=== PATIENT | female | born 1975 | race American Indian/Alaskan Native ===

== ENCOUNTER 2018-05-20 15:00 | Outpatient (CLI) | payer BC ==
--- NOTE | 2018-05-21 12:49 | Mammography Report ---
BILATERAL DIGITAL SCREENING MAMMOGRAM WITH CAD:05/20/18 00:00:00 CLINICAL: Baseline screening. FINDINGS: There are bilateral scattered fibroglandular densities.No mass, architectural distortion or suspicious calcifications. IMPRESSION: No mammographic evidence of malignancy. BI-RADS CATEGORY: 1 -- Negative RECOMMENDATION: Routine mammographic screening in one year. ACR BI-RADS MAMMOGRAPHIC CODES: 0 = Needs additional imaging evaluation; 1 = Negative; 2 = Benign; 3 = Probably benign; 4 = Suspicious; 5 = Malignant; 6 = Known biopsy-proven malignancy COMMENT: 1. Dense breast tissue, i.e., adenosis, fibrocystic changes, etc., may obscure an underlying neoplasm. 2. Approximately 10% of cancers are not detected with mammography. 3. A negative mammography report should not delay biopsy if a clinically suspicious mass is present.
== END 2018-05-20 15:01 | disposition home or self-care (01) ==
LOC: SPVWC 15:00
PROVIDERS: ATTEND Obstetrics & Gynecology
DX: Z12.31 Encounter for screening mammogram for malignant neoplasm of breast (principal)
CPT/HCPCS: 77067

== ENCOUNTER 2019-06-01 14:39 | Outpatient (CLI) | payer BC ==
--- NOTE | 2019-06-01 16:05 | Mammography Report ---
BILATERAL DIGITAL SCREENING MAMMOGRAM WITH CAD INDICATION: Routine screening mammography. TECHNIQUE: Digital bilateral 2D mammography was obtained in the craniocaudal and mediolateral obliq ue projections. This examination was interpreted with the benefit of Computer-Aided Detection analysi s. COMPARISON: 05/20/2018 FINDINGS: Breast Density: The breasts are almost entirely fatty. No mass, architectural distortion or suspicious calcifications. IMPRESSION:No mammographic evidence of malignancy. BI-RADS Category 1: Negative. No mammographic evidence of malignancy. Recommend routine screening m ammography in one year. A "normal" or negative report should not discourage follow up or biopsy of a clinically significant f inding. A written summary of these findings will be mailed to the patient. The patient will be entered into a mammography reporting system which will generate a reminder letter for the patient's next appointmen t at the appropriate interval. The [employer] recommends yearly mammograms starting at age 40 and continuing as l rebeca as a woman is in good health. Breast MRI is recommended for women with an approximate 20-25% or greater lifetime risk of breast cancer, including women with a strong family history of breast or ova servando cancer or who have been treated for Hodgkin's disease. Signer Name: Sky Mckeon MD Signed: 06/01/2019 4:01 PM Workstation Name: [id number]
== END 2019-06-01 14:40 | disposition home or self-care (01) ==
LOC: SPVWC 14:39
PROVIDERS: ATTEND Obstetrics & Gynecology
DX: Z12.31 Encounter for screening mammogram for malignant neoplasm of breast (principal)
CPT/HCPCS: 77067

== ENCOUNTER 2020-09-11 09:06 | Outpatient (CLI) | payer BC ==
--- NOTE | 2020-09-11 10:33 | Mammography Report ---
DIGITAL SCREENING MAMMOGRAM WITH CAD, 09/11/2020 CLINICAL INFORMATION / INDICATION: Routine screening mammography. TECHNIQUE: Digital bilateral 2D mammography was obtained in the craniocaudal and mediolateral obliqu e projections. This examination was interpreted with the benefit of Computer-Aided Detection analysis . COMPARISON: 05/20/2018, 06/01/2019 FINDINGS: Breast Density: There are scattered areas of fibroglandular density. No dominant mass, suspicious calcifications, or architectural distortion in either breast. No interval change. IMPRESSION: No mammographic evidence of malignancy. Follow up recommendation: Routine yearly BI-RADS Category 1: Negative. A "normal" or negative report should not discourage follow up or biopsy of a clinically significant f inding. A written summary of these findings will be mailed to the patient. The patient will be entered into a mammography reporting system which will generate a reminder letter for the patient's next appointmen t at the appropriate interval. The [employer] recommends yearly mammograms starting at age 40 and continuing as l rebeca as a woman is in good health. Breast MRI is recommended for women with an approximate 20-25% or greater lifetime risk of breast cancer, including women with a strong family history of breast or ova servando cancer or who have been treated for Hodgkin's disease. Signer Name: Carol Saavedra MD Signed: 09/11/2020 10:28 AM Workstation Name: [id number]
== END 2020-09-11 09:07 | disposition home or self-care (01) ==
LOC: SPVWC 09:06
PROVIDERS: ATTEND Obstetrics & Gynecology
DX: Z12.31 Encounter for screening mammogram for malignant neoplasm of breast (principal); N64.89 Other specified disorders of breast
CPT/HCPCS: 77067

== ENCOUNTER 2021-09-05 13:22 | Outpatient (CLI) | payer BC ==
--- NOTE | 2021-09-06 16:54 | Mammography Report ---
DIGITAL SCREENING MAMMOGRAM WITH CAD, 09/05/2021 CLINICAL INFORMATION / INDICATION: Routine screening mammography. TECHNIQUE: Digital bilateral 2D mammography was obtained in the craniocaudal and mediolateral obliqu e projections. This examination was interpreted with the benefit of Computer-Aided Detection analysis . COMPARISON: 09/11/2020, 06/01/2019 FINDINGS: Breast Density: There are scattered areas of fibroglandular density. No dominant mass, suspicious calcifications, or architectural distortion in either breast. No interval change. IMPRESSION: No mammographic evidence of malignancy. Follow up recommendation: Routine yearly BI-RADS Category 1: Negative. A "normal" or negative report should not discourage follow up or biopsy of a clinically significant f inding. A written summary of these findings will be mailed to the patient. The patient will be entered into a mammography reporting system which will generate a reminder letter for the patient's next appointmen t at the appropriate interval. The [employer] recommends yearly mammograms starting at age 40 and continuing as l rebeca as a woman is in good health. Breast MRI is recommended for women with an approximate 20-25% or greater lifetime risk of breast cancer, including women with a strong family history of breast or ova servando cancer or who have been treated for Hodgkin's disease. Signer Name: Carol Saavedra MD Signed: 09/06/2021 4:50 PM Workstation Name: [id number]
== END 2021-09-05 13:23 | disposition home or self-care (01) ==
LOC: SPVWC 13:22
PROVIDERS: ATTEND Obstetrics & Gynecology
DX: Z12.31 Encounter for screening mammogram for malignant neoplasm of breast (principal)
CPT/HCPCS: 77067

== ENCOUNTER 2021-09-12 05:53 | Day surgery (SDC) | payer BC ==
[2021-09-10 10:35] LABS: Basophils # (Auto) 0.1 K/mm3 (0.0-0.1); Basophils % (Auto) 0.9 % (0.0-1.8); Eosinophils # (Auto) 0.1 K/mm3 (0.0-0.4); Eosinophils % (Auto) 1.1 % (0.0-4.3); Lymphocytes # (Auto) 1.8 K/mm3 (1.2-5.4); Mean Corpuscular HGB Conc 31 % (30-34); Mean Corpuscular Volume 70 fl (79-97); Monocytes # (Auto) 0.5 K/mm3 (0.0-0.8); Monocytes % (Auto) 7.2 % (0.0-7.3); Platelet Count 411 K/mm3 (140-440); Red Blood Count 4.98 M/mm3 (3.65-5.03); Red Cell Distribution Width 17.3 % (13.2-15.2)
[2021-09-10 10:53] LABS: Blood Urea Nitrogen 8 mg/dL (7-17); Hemolysis Index 3
[2021-09-10 10:58] LABS: BUN/Creatinine Ratio 16
--- NOTE | 2021-09-10 14:38 | History and Physical Report ---
History of Present Illness Date of examination: 09/09/21 History of present illness: Patient has been reassessed/reevaluated. H&P has been reviewed. No interval changes. This is a 46 years old female who presents with uterine fibroids. She complains of pelvic pain, pelvic pressure, menorrhagia and intermenstrual bleeding, but denies abdominal pain and abdominal pressure. Treatment tried to date includes control pills and no prior treatment. Patient's work up has included a transvaginal ultrasound which revealed myoma. Patient's symptoms when present disrupts her normal daily activities Patient desires definitive treatment ] Vital Signs: Patient Profile: 46 Years Old Female LMP: 09/05/2021 Height: 64 inches (162.56 cm) Weight: 220 pounds BMI: 37.76 Temp: 97.2 degrees F BP sittin / 80 (left arm) Menstrual History: LMP (date): 09/05/2021 Current Method of Contraception: None Date of Last Pap Smear: 07/18/2021 Past History : 1 Term Births: 1 Premature Births: 0 Living Children: 1 Para: 1 Mult. Births: 0 Prev : 1 Prev. attempt? 0 Aborta: 0 Elect. Ab: 0 Spont. Ab: 0 Ectopics: 0 # 1 Delivery date: 11/30/2016 Weeks Gestation: 38 Delivery type: Anesthesia type: epidural Infant Sex: female weight: 7.81 Comments: Active labor, Failure of Descent, meconium, Unengaged vertex at term Active Medications (reviewed today): metformin 500 mg tablet extended release 24 hr (metformin) hydrochlorothiazide 12.5 mg capsule (hydrochlorothiazide) Vitamin D3 50 mcg (2,000 unit) capsule (cholecalciferol (vitamin d3)) Current Allergies (reviewed today): PCN (Critical) Past Medical History: PCOS Fibroids Past Surgical History: Cone bx Right arm (11/2016) Neck lymph node biopsy(07/15/2021) Family History Summary: Other Family Member - Has No Family History of Uterine Cancer - Entered On: 06/22/2018 Other Family Member - Has No Family History of Small Bowel Cancer - Entered On: 06/22/2018 Other Family Member - Has No Family History of Stomach Cancer - Entered On: 06/22/2018 Other Family Member - Has No Family History of Pancreatic Cancer - Entered On: 06/22/2018 Other Family Member - Has No Family History of Ovarvian Cancer - Entered On: 06/22/2018 Other Family Member - Has No Family History of Kidney/Urinary Tract Cancer - Entered On: 06/22/2018 Other Family Member - Has No Family History of Spontaneous DVT-PE - Entered On: 06/22/2018 Other Family Member - Has No Family History of Colon Cancer - Entered On: 06/22/2018 Other Family Member - Has No Family History of Brain Cancer - Entered On: 06/22/2018 Other Family Member - Has No Family History of Breast Cancer - Entered On: 06/22/2018 Other Family Member - Has No Family History of Biliary Tract Cancer - Entered On: 06/22/2018 General Comments - FH: Family History of CVA or Stroke Family History of Hypertension No Family History of Breast Cancer No Family History of Cervical Cancer No Family History of Colon Cancer No Family History of Ovarvian Cancer 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 of genital herpes: no Partner hx. of genital herpes: no Hx of STD: chlamydia Review of Systems General Complains of fatigue. Denies fever, chills, sweats, anorexia, weakness, malaise, weight loss and sleep disorder. Complains of menorrhagia and painful periods. Denies vaginal discharge, incontinence, dysuria, hematuria, urinary frequency, amenorrhea, abnormal vaginal bleeding, pelvic pain, genital sores, decreased libido, painful sex, urinary urgency, hot flashes, vaginal dryness, vaginal itching and vaginal odor. CV Denies chest pains, palpitations, syncope, dyspnea on exertion, orthopnea, PND and peripheral edema. Resp Denies cough, dyspnea at rest, excessive sputum, hemoptysis, wheezing and pleurisy. GI Denies nausea, vomiting, diarrhea, constipation, change in bowel habits, abdominal pain, melena, hematochezia, jaundice, gas/bloating, indigestio n/heartburn, dysphagia and odynophagia. Breast Denies left breast lump, right breast lump, nipple discharge, bloody discharge from nipple, breast pain, abnormal mammogram and breast enlargement. Psych Denies depression, anxiety, irritability and mood swings. Past History Past Medical History: other (See HPI ) Past Surgical History: Other (See HPI ) Social history: full code, other (See HPI ) Family history: other (See HPI ) Medications and Allergies Allergies Allergy/AdvReac Type Severity Reaction Status Date / Time Penicillins Allergy Intermediate Rash Verified 09/09/21 17:44 Home Medications Medication Instructions Recorded Confirmed Last Taken Type Ergocalciferol (Vitamin D2) 5,000 unit PO DAILY 09/09/21 09/09/21 Unknown History [Vitamin D2] Spironolactone [Aldactone] 25 mg PO QDAY 09/09/21 09/09/21 Unknown History metFORMIN [Glucophage] 500 mg PO QDAY 09/09/21 09/09/21 Unknown History Active Meds: Active Medications Gentamicin Sulfate 500 mg/ (Sodium Chloride) 112.5 mls @ 200 mls/hr IV PREOP ONE; Protocol Stop: 09/12/21 07:03 Clindamycin HCl (Cleocin 900 Mg/50 Ml) 900 mg in 50 mls @ 100 mls/hr IV PREOP NR; Protocol Stop: 09/12/21 20:00 Review of Systems Constitutional: other (See HPI ) Exam - Physical Exam Narrative exam: HEENT: normocephalic, no lesions or deformities increased hair growth Skin no ulcers, xanthomas Chest: respiratory effort normal, clear to auscultation CV: regular, normal S1-S2, no murmur, no rub, no gallop Abdomen: obese normal bowel sounds, soft, nontender, no HSM Well healed pfann enstiel scar increased hair growth Neuro: no gross anomalities Extremities: no clubbing, cyanosis, or edema 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 No evidence of cysto rd or rectocele. Cervix: normal appearance, no lesions, no discharge Uterus: unable to palpate due to obesity Adnexae: unable to palpate due to obesity Rectovaginal: exam defered Results - Labs CBC & Chem 7: 09/10/21 09:40 09/10/21 06:00 Labs: Abnormal lab results 09/10/21 09/10/21 Range/Units 06:00 09:40 MCV 70 L (79-97) fl MCH 22 L (28-32) pg RDW 17.3 H (13.2-15.2) % Creatinine 0.5 L (0.6-1.2) mg/dL Assessment and Plan - Patient Problems (1) Intramural leiomyoma of uterus Current Visit: No Status: Acute Plan to address problem: Diagnosis explained to patient . Questions answered. Discussed with patient various medical, surgical and radiological therapies common for treatment including expectant management, myomectomy hysterectomy and uterine artery embolization Patient desires hysterectomy Discussed risks and benefits of laparotomy, laparoscopy, vaginal and robotic assisted approaches for hysterectomies Patient desires robotic assisted total hysterectomy. Consent reviewed and signed . The risks and alternatives for this surgery were reviewed with the patient. Discuss the risks of the surgery including infection, bleeding possibly heavy enough to require a blood transfusion, possible damage to bowel, bladder or ureter. Patient understand that this surgery with make her sterile.Patient understands if her ovaries are removed she will become menopausal. Also if unable to complete robitcally a laparotomy may required. Patient understands her risks of adjacent organ damage is increased due to her previous surgery(ies) Patient understands and desires to proceed. (2) Menorrhagia Current Visit: No Status: Acute Qualifiers: Menorrhagia type: with regular cycle Qualified Code(s): N92.0 - Excessive and frequent menstruation with regular cycle Plan to address problem: Probably secondary to # 1 (3) Dysmenorrhea Current Visit: No Status: Acute Plan to address problem: Probably secondary to # 1 (4) BMI 37.0-37.9, adult Current Visit: No Status: Acute Plan to address problem: Patient has been advised that obesity does increase risks of surgical and risks of post operative
--- NOTE | 2021-09-10 14:55 | Anesthesia Consultation ---
Anesthesia Consult and Med Hx Date of service: 09/12/21 - Airway Anesthetic Teeth Evaluation: Good ROM Head & Neck: Adequate Mental/Hyoid Distance: Adequate Mallampati Class: Class II Intubation Access Assessment: Good - Pre-Operative Health Status ASA Pre-Surgery Classification: ASA2 Proposed Anesthetic Plan: General Nerve Block: TAP - Pulmonary Hx Asthma: No COPD: No Hx Pneumonia: No Hx Sleep Apnea: No - Cardiovascular System Hx Hypertension: No - Central Nervous System Hx Seizures: No Hx Psychiatric Problems: No - Gastrointestinal Hx Gastroesophageal Reflux Disease: No - Endocrine Hx Renal Disease: No Hx End Stage Renal Disease: No Hx Insulin Dependent Diabetes: No (PCOS) Hx Non-Insulin Dependent Diabetes: No Hx Thyroid Disease: Yes (Nodules-stable on US for years) Hx Hypothyroidism: No Hx Hyperthyroidism: No - Hematic Hx Anemia: No Hx Sickle Cell Disease: Yes (Trait only) - Other Systems Hx Alcohol Use: No Hx Cancer: No Hx Obesity: Yes
[2021-09-12] MEDS ORDERED: fentaNYL 100 MCG/2 ML INJ IV NR (06:00)
[2021-09-12] MEDS ORDERED: ACETAMINOPHEN 500 MG TAB PO NR (06:00)
[2021-09-12] MEDS ORDERED: GABAPENTIN 300 MG CAP PO NR (06:00)
[2021-09-12] MEDS ORDERED: LACTATED RINGERS 1,000 ML IV SCH (06:00)
[2021-09-12] MEDS ORDERED: CELECOXIB 200 MG CAP PO NR (06:00)
[2021-09-12] MEDS ORDERED: MAGNESIUM OXIDE 400 MG TAB PO NR (06:00)
[2021-09-12] MEDS ORDERED: MIDAZOLAM 2 MG/2 ML INJ IV NR (06:00)
[2021-09-12] MEDS ORDERED: GENTAMICIN 500 MG in SODIUM CHLORIDE 0.9% 100 ML IV ONE (06:30)
[2021-09-12] MEDS ORDERED: LIDOCAINE MPF (2%) 20 MG/1 ML VIAL 5 ML ONE (07:18)
[2021-09-12] MEDS ORDERED: ROCURONIUM 50 MG/5 ML INJ IV ONE ×2 (07:18→09:18)
[2021-09-12] MEDS ORDERED: fentaNYL 100 MCG/2 ML INJ ONE (07:18)
[2021-09-12] MEDS ORDERED: propofoL 200 MG/20 ML VIAL IV ONE (07:18)
[2021-09-12] MEDS ORDERED: dexAMETHasone 20 MG/5 ML VIAL ONE ×2 (07:25→09:18)
[2021-09-12] MEDS ORDERED: LIDOCAINE (1%) 10 MG/1 ML VIAL 20 ML MDV ONE (07:25)
[2021-09-12] MEDS ORDERED: BUPIVACAINE/PF (0.25%) 2.5 MG/ML 30 ML VIAL INFILTRATI ONE (07:25)
[2021-09-12] MEDS ORDERED: SODIUM CHLORIDE 0.9% 1000 ML 1,000 ML ONE (07:27)
--- NOTE | 2021-09-12 07:28 | Anesthesia Day of Surgery ---
Anesthesia Day of Surgery - Day of Surgery Patient Examined: Yes Patient H&P Reviewed: Yes Patient is NPO: Yes
[2021-09-12] MEDS ORDERED: NEOMY 40 MG/POLYMYXIN B 200,000 UNITS/ML (GU) AMPULE IR ONE ×2 (07:54→09:11)
[2021-09-12] MEDS ORDERED: KETAMINE/STERILE WATER 50 MG/ML SYRINGE ONE (08:25)
[2021-09-12] MEDS ORDERED: SODIUM CHLORIDE 0.9% IRR 1,500 ML BOTTLE IR ONE (09:11)
[2021-09-12] MEDS ORDERED: SODIUM CHLORIDE 0.9% IRRIG SOLN 2000 ML IR ONE (09:11)
[2021-09-12] MEDS ORDERED: NEOSTIGMINE 10MG/10 ML INJ MDV ONE (09:18)
[2021-09-12] MEDS ORDERED: GLYCOPYRROLATE 0.4 MG/2 ML INJ ONE (09:18)
[2021-09-12] MEDS ORDERED: HYDROmorphone 1 MG/1 ML INJ IV PRN (09:30)
[2021-09-12] MEDS ORDERED: ONDANSETRON 4 MG/2 ML INJ IV PRN (09:30)
[2021-09-12] MEDS ORDERED: LACTATED RINGERS 1,000 ML ONE (09:53)
[2021-09-12] MEDS ORDERED: HYDROcodone/ACETAMINOPHEN 5-325 MG TAB PO PRN (10:14)
--- NOTE | 2021-09-12 10:17 | Operative Report ---
Operative Report Operative Report: Date of procedure: September 12, 2021 Pre-operative diagnosis: Symptomatic leiomyomata with menorrhalgia and dysmenorrhea Post-operative diagnosis: Same Procedure name(s):Robotic Assisted Total Hysterectomy with bilateral salpingectomy Surgeon: Patrice Pham MD Print Decorator: Karin Leroy, certified detention deputy Anesthesia: General EBL: 50 cc Complications: None Findings: Patient with uterus approximately 14 weeks in size with normal- appearing fallopian tubes and ovaries bilaterally patient with some adhesions anterior uterus due to previous section Specimen(s): Uterus with cervix and bilateral fallopian tubes Procedure: Patient was brought to the operating room where general anesthesia was induced without difficulty. Patient was placed in the dorsal lithotomy position. Prepped and draped in the usual sterile manner for robotic procedure. Bhatti catheter was placed without difficulty. Speculum was placed in the vagina. A medium V-Care Uterine manipulator was placed without difficulty. Attention was now switched to the patient's abdomen. A vertical supra-umbilicus incision was made with a scalpel. A 10-12 trocar was placed in this incision under direct visualization. Intra-abdominal placement was verified with no evidence of internal organ damage. The patient was insufflated approximately 3-1/2 L of CO2 gas. She was placed in Trendelenburg position. The patient pelvic findings were noted as above. It was determined that the patient was a candidate for robotic procedure. On both sides the umbilical incision at about 8 cm, incisions were made for robotic trocars. Each robotic trocar was placed under direct visualization with no evidence of internal organ damage. One 5 mm trocar was placed 2 fingerbreadths above the right iliac crest. A 5 mm camera was placed in the right lower quadrant trocar, the 10-12 trocar was removed and a Tod Garza laparoscopic port closure device was placed through this incision under direct visualization with no evidence of internal organ damage. The camera was then replaced into this port. At this time the patient was placed in extreme Trendelenburg. The da Edu robot was then docked on the patient's left side. The trocars connected to the robot appropriately robotic instruments were placed under direct visualization no evidence of internal organ damage.. At this time I took my place under the robotic operating vilchis. Starting on the patient's right side the ureter was identified and found to be out of the operative field. Using the robotic vessel sealer the mesosalpinx under the fallopian tube were cauterized and cut starting from the distal end. Utero-ovarian complex was then cauterized and cut. This was followed by cauterizing and cutting the right fallopian tube and right round ligament. The broad ligament was then opened. The bladder flap was formed anteriorly. The posterior broad ligament was then excised. The uterine vessels were skeletonized. The ureter was clearly seen out of the operative field. The bladder was pushed away from the anterior uterus. The right uterine vessels were then cauterized and cut. Attention was then switched to the patient's left side. The same procedure was repeated on the left side with perform the salpingectomy followed by isolating the uterine vessels cauterized and cutting and completing the bladder flap from the left side. At this time the uterus was appearing very cyanotic. After inspecting the bladder flap to insured no evidence of bladder injury, the colpotomy was then started. Incision started at 6:00 until the V-Care could be seen. This incision was extended from 6:00 to 9:00. Then from 6:00 to 3:00. Then from 9:00 to 12:00. This incision was extended from 3:00 to 12:00. At this time colpotomy was complete with no evidence of adjacent organ damage. The manager surgery remove the uterus from through the colpotomy site. The vaginal cuff was irrigated and cauterized and found to be hemostatic. The cuff was closed with roboticly using 0 V- Lock suture. This closure was hemostatic after irrigation and Bovie. All pedicles were inspected and found to be hemostatic. The ureters were identified bilaterally and found to be functioning normal. The patient had clear urine in the Bhatti catheter with no evidence of mixture with blood. All instruments were then removed. The large trocar sites were closed in layers 2-0 Vicryl and 4-0 Monocryl. The smaller incisions were closed subcuticularly with 4-0 Monocryl. Dermabond was placed over the skin incisions. The patient tolerated procedure well. She was awakened in the operating room and accompanied to the recovery room in good condition.
[2021-09-12] MEDS: HYDROmorphone 1 MG/1 ML INJ IV PRN ×4 (10:47→13:35)
[2021-09-12] MEDS ORDERED: KETOROLAC 30 MG/1 ML INJ IV ONE (11:00)
--- NOTE | 2021-09-12 12:16 | Post Anesthesia Evaluation ---
- Post Anesthesia Evaluation Patient Participated: Yes Airway Patent: Yes Stable Respiratory Function: Yes Nausea/Vomiting: No Temp > 96.8F: Yes Pain Manageable: Yes Adequeate Hydration: Yes Anesthesia Complications: No Block Receding Appropriately: Not Applicable Patient on Ventilator: No
--- NOTE | 2021-09-12 15:10 | Short Stay Summary ---
Short Stay Documentation Date of service: 09/12/21 Narrative H&P: See dictated history and physical - History Principal diagnosis: Symptomatic leiomyomata Past Medical History: other (See HPI ) Past Surgical History: Other (See HPI ) Social history: full code, other (See HPI ) - Allergies and Medications Current Medications: Allergies Penicillins Allergy (Intermediate, Verified 09/09/21 17:44) Rash Home Medications Medication Instructions Recorded Confirmed Last Taken Type Ergocalciferol (Vitamin D2) 5,000 unit PO DAILY 09/09/21 09/12/21 09/11/21 14:00 History [Vitamin D2] Spironolactone [Aldactone] 25 mg PO QDAY 09/09/21 09/12/21 09/11/21 14:00 History metFORMIN [Glucophage] 500 mg PO QDAY 09/09/21 09/12/21 09/10/21 14:00 History Ibuprofen [Motrin] 800 mg PO TID PRN #30 tablet 09/12/21 Unknown Rx metroNIDAZOLE [Flagyl] 500 mg PO Q12HR 7 Days #14 tab 09/12/21 Unknown Rx oxyCODONE /ACETAMINOPHEN [Percocet 1 - 2 tab PO Q6HR PRN #20 tablet 09/12/21 Unknown Rx 5/325 mg] Active Medications Acetaminophen (Acetaminophen 500 Mg Tab) 1,000 mg PO ONCE NR Stop: 09/12/21 20:00 Last Admin: 09/12/21 06:30 Dose: 1,000 mg Documented by: Hydrocodone Bitart/Acetaminophen (Hydrocodone/Acetaminophen 5-325 Mg Tab) 2 each PO Q6H PRN PRN Reason: Pain, Moderate (4-6) Celecoxib (Celecoxib 200 Mg Cap) 400 mg PO PREOP NR Stop: 09/12/21 20:00 Last Admin: 09/12/21 06:30 Dose: 400 mg Documented by: Fentanyl (Fentanyl 100 Mcg/2 Ml Inj) 100 mcg IV ONCE NR Stop: 09/12/21 20:00 Last Admin: 09/12/21 07:35 Dose: 100 mcg Documented by: Gabapentin (Gabapentin 300 Mg Cap) 300 mg PO PREOP NR Stop: 09/12/21 20:00 Last Admin: 09/12/21 06:30 Dose: 300 mg Documented by: Hydromorphone HCl (Hydromorphone 1 Mg/1 Ml Inj) 0.25 mg IV Q10MIN PRN PRN Reason: Pain, Moderate (4-6) Stop: 09/12/21 18:00 Hydromorphone HCl (Hydromorphone 1 Mg/1 Ml Inj) 0.5 mg IV Q10MIN PRN PRN Reason: Pain , Severe (7-10) Stop: 09/12/21 18:00 Last Admin: 09/12/21 11:10 Dose: 0.5 mg Documented by: Clindamycin HCl (Cleocin 900 Mg/50 Ml) 900 mg in 50 mls @ 100 mls/hr IV PREOP NR; Protocol Stop: 09/12/21 20:00 Lactated Ringer's (Lactated Ringers) 1,000 mls @ 125 mls/hr IV DIRECT LI Last Admin: 09/12/21 07:10 Dose: 125 mls/hr Documented by: Magnesium Oxide (Magnesium Oxide 400 Mg Tab) 400 mg PO ONCE NR Stop: 09/12/21 20:00 Last Admin: 09/12/21 06:30 Dose: 400 mg Documented by: Methocarbamol (Methocarbamol 750 Mg Tab) 1,500 mg PO ONCE NR Stop: 09/12/21 20:00 Last Admin: 09/12/21 06:30 Dose: 1,500 mg Documented by: Midazolam HCl (Midazolam 2 Mg/2 Ml Inj) 2 mg IV PREOP NR Stop: 09/12/21 23:59 Last Admin: 09/12/21 07:35 Dose: 2 mg Documented by: Ondansetron HCl (Ondansetron 4 Mg/2 Ml Inj) 4 mg IV ONCE PRN PRN Reason: Nausea And Vomiting Stop: 09/12/21 19:00 - Hospital course Hospital course: Patient was admitted underwent the above him procedure without any complications. Patient was admitted and underwent above procedure without complications. Her post operative extended recovery observation course was benign she was afebrile throughout. Patient had no orthostatic symptoms. Patient was tolerating regular diet and voiding without difficulty at time of discharge. Patient incision was healing well without evidence of infection. Patient will be discharged with follow-up in office in 1-2 weeks for postop check - Disposition Condition at discharge: Good - Discharge Diagnoses (1) Intramural leiomyoma of uterus Status: Acute (2) Menorrhagia Status: Acute Qualifiers: Menorrhagia type: with regular cycle Qualified Code(s): N92.0 - Excessive and frequent menstruation with regular cycle (3) Dysmenorrhea Status: Acute (4) BMI 37.0-37.9, adult Status: Acute Short Stay Discharge Plan Diet: regular Wound: open to air Additional Instructions: Patient instructed no heavy lifting for 4 weeks. No intercourse for 8 weeks. Call office for fever, chills, nausea, vomiting or pain not controlled by pain medications. Ambulation is encouraged. Patient's call for heavy vaginal bleeding. Patient instructed to keep her scheduled post operative office appointment. Follow up with: YOLI BRIGGS MD [Primary Care Provider] - 7 Days Prescriptions: metroNIDAZOLE [Flagyl] 500 mg PO Q12HR 7 Days #14 tab Ibuprofen [Motrin] 800 mg PO TID PRN #30 tablet PRN Reason: Pain oxyCODONE /ACETAMINOPHEN [Percocet 5/325 mg] 1 - 2 tab PO Q6HR PRN #20 tablet PRN Reason: Pain
[2021-09-12] MEDS ORDERED: oxyCODONE /ACETAMINOPHEN 5-325MG TAB PO PRN (15:22)
[2021-09-12 19:11] VITALS: BP 121/62
== END 2021-09-12 16:40 | disposition home or self-care (01) ==
LOC: OR 05:53
PROVIDERS: ATTEND Obstetrics & Gynecology
DX: D25.1 Intramural leiomyoma of uterus (principal); N92.0 Excessive and frequent menstruation with regular cycle; E66.9 Obesity, unspecified; Z68.37 Body mass index [BMI] 37.0-37.9, adult; Z79.84 Long term (current) use of oral hypoglycemic drugs; Z79.899 Other long term (current) drug therapy; Z98.890 Other specified postprocedural states; Z20.822 Contact with and (suspected) exposure to COVID-19; Z88.0 Allergy status to penicillin
CPT/HCPCS: 36415; 58573; 80048; 82962; 84703; 85025; 86850; 86900; 86901; 88307; J1100; J1170; J1580; J1815; J1885; J2250; J2405; J2704; J2710; J3010; J3490; J7030; J7120; J7502; S2900; U0003; 64450; Q0162